=== PATIENT | male | born 1975 | race Caucasian/White ===

== ENCOUNTER 2017-05-23 13:35 | Emergency (ER) | payer SELFPAY ==
[2017-05-23 14:06] VITALS: BP 119/75; PULSE 84; TEMP 98.6; BMI 30.9
--- NOTE | 2017-05-23 15:02 | PDOC ---
History of Present Illness - General Chief Complaint: Wound Stated Complaint: BLEEDING Time Seen by Provider: 05/23/17 14:18 History Source: Patient Exam Limitations: No Limitations - History of Present Illness Initial Comments: 05/23/17 14:55 Patient is a [41-year-old male who presents for evaluation of bleeding wound to right side of chest. Patient reports scratching his chest and a small area started bleeding, uncontrolled, patient reports after pressure area still continued to bleed. Patient denies any palpitations, no use of anticoagulation, no history of liver disease, no chest pain or shortness of breath.] Past Medical History: [Denies]. Allergies: No known allergies Medications: [None] Family History: Non-contributory Social History: Denies smoking, alcohol use, or IVDU Vital signs on arrival are [notable for pulse of 84.] Review of Systems GENERAL/CONSTITUTIONAL: [No fever or chills. No weakness. No weight change.] HEAD, EYES, EARS, NOSE AND THROAT: [No change in vision. No ear pain or discharge. No sore throat. ] CARDIOVASCULAR: [No chest pain or shortness of breath.] RESPIRATORY: [No cough, wheezing, or hemoptysis.] GASTROINTESTINAL: [No nausea, vomiting, diarrhea or constipation. No rectal bleeding.] GENITOURINARY: [No dysuria, frequency, or change in urination.] MUSCULOSKELETAL: [No joint or muscle swelling or pain. No neck or back pain.] SKIN AND BREASTS: [No rash or easy bruising. There is a pinoint area of bleeding to the right chest. ] NEUROLOGIC: [No headache, vertigo, loss of consciousness, or loss of sensation.] PSYCHIATRIC: [No depression or anxiety.] ENDOCRINE: [No increased thirst. No abnormal weight change.] HEMATOLOGIC/LYMPHATIC: [No anemia, easy bleeding, or history of blood clots.] ALLERGIC/IMMUNOLOGIC: [No hives or skin allergy. No latex allergy.] Physical Exam: GENERAL: [The patient is awake, alert, and fully oriented, in no acute distress. ] EYES: [Pupils equal, round and reactive to light, extraocular movements intact, sclera anicteric, conjunctiva clear.] ENT: [Ears normal, nares patent, oropharynx clear without exudates. Moist mucous membranes. No uvula deviation] NECK: [Normal range of motion, supple without lymphadenopathy, JVD, or masses.] LUNGS: [Breath sounds equal, clear to auscultation bilaterally. No wheezes, and no crackles.] HEART: [Regular rate and rhythm, normal S1 and S2 without murmur, rub or gallop. ] ABDOMEN: [Soft, nontender, normoactive bowel sounds. No guarding, no rebound. No masses. No bruising or abrasions] MUSCULOSKELETAL: [Normal range of motion, no edema. No clubbing or cyanosis. No cords, erythema, or tenderness. No CVA Tenderness with fist.] NEUROLOGICAL: [Cranial nerves II through XII grossly intact. Normal speech, normal gait.] PSYCH: [Normal mood, normal affect.] SKIN: [Warm, Dry, normal turgor, no rashes or lesions noted. Small pinpoint area of bleeding to the right chest. No bruising ] Past History - Past Medical History Allergies/Adverse Reactions: Allergies Allergy/AdvReac Type Severity Reaction Status Date / Time No Known Allergies Allergy Verified 05/23/17 14:00 Home Medications: Ambulatory Orders NK [No Known Home Medication] 05/23/17 COPD: No - Immunization History Immunization Up to Date: No - Suicide/Smoking/Psychosocial Hx Smoking History: Never smoked Hx Alcohol Use: Yes Drug/Substance Use Hx: No *Physical Exam - Vital Signs Last Vital Signs Temp Pulse Resp BP Pulse Ox 98.6 F 84 18 119/75 98 05/23/17 14:01 05/23/17 14:01 05/23/17 14:01 05/23/17 14:01 05/23/17 14:01 Medical Decision Making - Medical Decision Making 05/23/17 14:59 A/P: Patient here for pinpoint area of bleeding to right sided chest. Area started bleeding after patient scratched it. Most likely a small vascularity, Otto reports area may have been scabbed prior. I attempted to cauterize area with no result I applied Surgicel with good result , hemostasis achieved will apply dressing, encourage patient not to wet area to keep area covered until Surgicel falls off on its own. If area starts to bleed again, to apply pressure and return to the ER. *DC/Admit/Observation/Transfer Diagnosis at time of Disposition: Bleeding - Discharge Dispostion Disposition: HOME Condition at time of disposition: Stable Admit: No - Referrals - Patient Instructions Additional Instructions: PLease keep area clean and dry. Allow for Surgicel to fall off on its own. Please keep dry for at least the next 48 hours. If bleeding returns apply pressure and return to the ER. - Post Discharge Activity Forms/Work/School Notes: Back to Work
== END 2017-05-23 15:07 | disposition home or self-care (01) ==
LOC: JERFT 13:35
DX: S21.109A Unspecified open wound of unspecified front wall of thorax without penetration into thoracic cavity, initial encounter (principal); S20.319A Abrasion of unspecified front wall of thorax, initial encounter; X58.XXXA Exposure to other specified factors, initial encounter; Y93.89 Activity, other specified; Y92.038 Other place in apartment as the place of occurrence of the external cause; Y99.8 Other external cause status
CPT/HCPCS: 99281-25